=== PATIENT | male | born 1965 | race Caucasian/White ===

== ENCOUNTER 2018-12-01 22:42 | Emergency (ER) | payer OTHER ==
[~2018-12-01] VITALS: Ht 193 cm; Wt 97.0 kg
[2018-12-01 22:50] VITALS: Ht 193 cm; Wt 97.0 kg
--- NOTE | 2018-12-02 00:26 | ERD ---
ER Documentation Chief Complaint Chief Complaint STATES "I JUST DONT FEEL RIGHT". NO SPECIFIC SYMPTOMS. HPI This is a 53-year-old male presenting to the emergency department complaining of pain to the left lower molar region intermittently for the past 4 years. He states he did have a tooth pulled there and still feels that the tooth is there and it still causes him pain. Pain is moderate in severity. He also states he feels his blood pressure is high. He adamantly denies any headache, dizziness, blurred vision, abdominal pain, hematuria, chest pain, shortness of breath, syncope, or other symptoms at this time. No other complaints currently. ROS All systems reviewed and are negative except as per history of present illness. Allergies Allergies: Coded Allergies: No Known Allergy (Unverified , 12/01/18) PMhx/Soc Medical and Surgical Hx: pt denies Surgical Hx Hx Cardiac Disorders: Yes (htn) Hx Alcohol Use: Yes (BEER DAILY) Hx Substance Use: No Hx Tobacco Use: No Smoking Status: Never smoker FmHx Family History: No diabetes Physical Exam Vitals Vital Signs Date Temp Pulse Resp B/P (MAP) Pulse Ox O2 O2 Flow FiO2 Time Delivery Rate 12/02/18 98.3 55 17 136/80 100 Room Air 00:38 (98) 12/01/18 98.3 63 20 143/104 99 22:50 (117) Physical Exam Const: No acute distress Head: Atraumatic Eyes: Normal Conjunctiva ENT: Normal External Ears, Nose and Mouth. Poor dentition. There are multiple extracted teeth noted to the left lower molar region. No obvious dental abscesses noted. Neck: Full range of motion. No meningismus. Resp: Clear to auscultation bilaterally Cardio: Regular rate and rhythm, no murmurs Skin: No petechiae or rashes Back: No midline or flank tenderness Ext: No cyanosis, or edema Neur: Awake and alert Psych: Normal Mood and Affect Procedures/MDM 53-year-old male presents to the emergency department with signs and symptoms most consistent with phantom pain in the left lower molar region. He did have a tooth extracted here 4 years ago and examination of this area shows no dental abscesses. Departure Diagnosis: Primary Impression: Phantom pain Condition: Fair Patient Instructions: High Blood Pressure (Hypertension) Referrals: [facility] YOU HAVE RECEIVED A MEDICAL SCREENING EXAM AND THE RESULTS INDICATE THAT YOU DO NOT HAVE A CONDITION THAT REQUIRES URGENT TREATMENT IN THE EMERGENCY DEPARTMENT. FURTHER EVALUATION AND TREATMENT OF YOUR CONDITION CAN WAIT UNTIL YOU ARE SEEN IN YOUR DOCTORS OFFICE WITHIN THE NEXT 1-2 DAYS. IT IS YOUR RESPONSIBILITY TO MAKE AN APPOINTMENT FOR FOLOW-UP CARE. IF YOU HAVE A PRIMARY DOCTOR --you should call your primary doctor and schedule an appointment IF YOU DO NOT HAVE A PRIMARY DOCTOR YOU CAN CALL OUR PHYSICIAN REFERRAL HOTLINE AT IF YOU CAN NOT AFFORD TO SEE A PHYSICIAN YOU CAN CHOSE FROM THE FOLLOWING [facility] [address] [facility] [address] [facility] [address] [facility] [address] [facility] [id number] [facility]. [facility]. [address] [place] Additional Instructions: Keep a blood pressure journal and take it twice daily and record your numbers and take it to your primary care physician. Follow up with your PCP within the next 1-3 days for a repeat evaluation. If you require a referral to a specialist, your Primary Care Provider may be able to provide this for you. In most patient cases, a referral is not required. If you have further questions regarding this matter, please ask your Primary Care Provider. Return the the emergency department immediately if symptoms worsen or change. If you have any questions regarding medications, ask your pharmacist or us before you leave. If any adverse reactions, occur while taking your medications, discontinue the treatment and return to the emergency department immediately. If any new or worsening symptoms, uncontrolled fevers, or other unexplained symptoms occur, return to the emergency department immediately. Take your medications as directed, and complete the entire course of treatment. KISHAN SANTANA PA-C Dec 02, 2018 00:26
[2018-12-02 00:38] VITALS: BP 136/80; PULSE 55; RESP 17
== END 2018-12-02 00:35 | disposition home or self-care (01) ==
LOC: FTE 22:42
DX: G54.6 Phantom limb syndrome with pain (principal); I10 Essential (primary) hypertension
CPT/HCPCS: 99282